=== PATIENT | female | born 1985 | race Caucasian/White ===

== ENCOUNTER 2021-04-12 07:45 | Observation (INO) ==
[2021-04-12] MEDS ORDERED: BETAMETH SOD PHOS/ACETATE IA 6 MG/ML IM STA (08:17)
[2021-04-12] MEDS: LACTATED RINGER'S 1,000 ML IV PRN ×2 (08:35→09:34)
--- NOTE | 2021-04-12 08:35 | History & Physical Report ---
Date of Service April 12, 2021 Assessment & Plan (1) Low-lying placenta: (2) Vaginal bleeding: Plan: Given patient's known low-lying placenta, will want to obtain ultrasound to eval distance of edge of placenta from cervical os. No active bleeding on speculum exam, therefore will plan to monitor for now for both labor and further bleeding. Will give IV fluids, keep NPO. Given early gestational age, will give betamethasone in the event patient needs to be delivered. History of Present Illness Chief Complaint: vaginal bleeding Primary Care Provider: Gabe Earl 36yo @ 34 [birth year]/01, presents with sudden onset of vaginal bleeding this morning, came directly to L&D for eval. Not having any pain. Not feeling ctx. + movement. No gush of fluid, just this bleeding. She brought underwear - did not wear a pad. The underwear is saturated with blood, estimate 20cc bright red blood. is complicated by low-lying placenta, last measurement in office 03/23 was 1.3cm from internal cervical os, with plans to recheck US in office at 36w. 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 Last intercourse a few days ago. Allergies Allergy/AdvReac Type Severity Reaction Status Date / Time No Known Allergies Allergy Mild Verified 04/12/21 08:23 Home Medications Medication Instructions Recorded Confirmed Type [id number] fum-folic ac-om3 1 tab PO DAILY 09/15/20 04/12/21 History [Daily ] famotidine [Pepcid] 40 mg PO BID 02/25/21 04/12/21 History Patient History Medical History No acute medical problems Surgical History H/O wisdom tooth extraction History of foot surgery left bunion surgery x 2 Family History Denies family history of Ovarian cancer Breast cancer Colorectal cancer Uterine cancer Social History (Updated 09/30/20 @ 09:30 by Bee Bhat) Smoking Status: Never smoker Hx Alcohol Use: No Hx Substance Use: No Preferred Language: [place] Communication Ability: Effective Curriculum Development Manager Required: No Beliefs That Will Affect Care: None marital status: marital status details: Luciano (30) [phone] Current Living Situation: Spouse Current Living Situation Comment: lives with spouse, 2 dogs, 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 No s/s chorio or abruption. Skin: no rashes, warm and dry Psychiatric: A+Ox3, euthymic affect Genitourinary: Sterile speculum exam: speculum gently inserted, cervix visualized - visually closed. There was a small clot in the vault, after clearing blood away gently with a large swab, there was no active bleeding from cervix or anywhere else. Digital exam of cervix is difficult due to patient discomfort with exam, but cervix feels closed/thick/high Results & Data ([facility]) Vital Signs (Past 12 Hours) Vital Signs Temp Pulse Resp BP 04/12/21 07:56 37.0 C 20 04/12/21 07:51 77 132/85 Monitoring External Monitor FHT Cat 1 [place] Q 2 min, patient not feeling these Coding Level of Care Code None Diagnoses Low-lying placenta O44.40 Vaginal bleeding N93.9
[2021-04-12 08:39] LABS: Hematocrit (blood only) 35.4 % (37-47); Hemoglobin 12.1 g/dL (12.0-16.0); Mean Corpuscular Hemoglobin 30.3 pg (25-34); Mean Corpuscular Hgb Conc 34.2 g/dL (32-36); Mean Corpuscular Volume 88.7 fL (80-100); Mean Platelet Volume 8.8 fL (7.4-10.4); Platelet Count 293 K/uL (130-400); RDW Coefficient of Variation 13.1 % (11.5-14.5); RDW Standard Deviation 42.8 fL (36.4-46.3); Red Blood Count 3.99 M/uL (4.2-5.4); White Blood Count 8.91 K/uL (4.8-10.8)
--- NOTE | 2021-04-12 10:10 | Ultrasound Report ---
US OB follow up CLINICAL HISTORY: placenta distance from internal cervical os COMPARISON STUDY: OB ultrasound March 23, 2021. TECHNIQUE: Transabdominal sonography of the pelvis was performed. FINDINGS: Single viable intrauterine gestation is noted. The presentation is vertex. heart is n ormal 137 bpm. Placenta is located posteriorly. The placenta is partially obscured on this examinatio n. There is no definite evidence for placenta previa. The appearance of the cervix has changed since ultrasound of March 23, 2021. The cervix canal appears open, measuring 8 mm at the level of the i nternal os. Hypoechoic material within the cervix is noted. Please note that a dedicated anatom ical survey was not performed. Amniotic fluid index is diminished at 6.5. IMPRESSION: 1. Single viable intrauterine gestation. Vertex presentation. Normal heart rate. 2. Cervix now appears open, as described above. Diminished amniotic fluid index of 6.5 cm. Findings d iscussed with Dr. Mendez at time of dictation. 3. Placental tip not well visualized on this exam but no definite evidence for placenta previa. ACT 112: Negative or not required by law. Electronically signed by: Ross Temple M.D. 04/12/2021 10:08 AM
--- NOTE | 2021-04-12 16:23 | Obstetrical Progress Note ---
Date of Service April 12, 2021 Assessment & Plan Admission and Anticipated Discharge Date Admission Date: April 12, 2021 Subjective Feeling good. No contractions - not feeling any, and none on tocometer. FHT Cat 1. No bleeding since this morning. Patient is feeling ok to go home. Recommend return to L&D tomorrow AM for 2nd dose of betamethasone. Reviewed s/s labor, she is to return if any labor signs or if any vaginal bleeding. Followup in office as scheduled. She is agreeable with plan. Results & Data ([facility]) Vital Signs (Past 12 Hours) Vital Signs Temp Pulse Resp BP 04/12/21 15:33 68 118/62 04/12/21 12:04 36.8 C 72 20 119/55 L 04/12/21 09:37 68 110/64 04/12/21 07:56 37.0 C 20 04/12/21 07:51 77 132/85 PG Care Time/CCT Total # of Minutes Spent Total Time Spent with Patient: Total time spent is greater than 50% in coordination of care (as documented) at patient's floor/unit and/or counseling patient: Coding Level of Care Code 56019 Office/Outpt Visit, Est
[2021-04-13] MEDS ORDERED: BETAMETH SOD PHOS/ACETATE IA 6 MG/ML IM ONE (08:20)
--- NOTE | 2021-04-16 23:17 | Discharge Summary ---
Date of Service April 16, 2021 Admission HPI Per Admitting Provider 36yo @ 34 6/7, presents with sudden onset of vaginal bleeding this morning, came directly to L&D for eval. Not having any pain. Not feeling ctx. + movement. No gush of fluid, just this bleeding. She brought underwear - did not wear a pad. The underwear is saturated with blood, estimate 20cc bright red blood. is complicated by low-lying placenta, last measurement in office 03/23 was 1.3cm from internal cervical os, with plans to recheck US in office at 36w. 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 Last intercourse a few days ago. Hospital Course (1) Low-lying placenta: 36yo @ 34 6/7, presented with bright red vaginal bleeding, filled underwear. Upon arrival, contractions every few minutes. Speculum exam showed a clot in the vagina, once this was removed, no further bleeding. Cervix closed. Ultrasound performed, showing internal os .8cm dilated, unable to really see edge of placenta. She was given IV fluids, this seemed to slow ctx and her bleeding resolved. After prolonged monitoring, she was discharged home. First dose of betamethasone given, return to L&D in 24h to receive 2nd dose. (2) Vaginal bleeding: Coding Level of Care Code None Diagnoses Low-lying placenta O44.40 Vaginal bleeding N93.9
== END 2021-04-12 16:30 | disposition home or self-care (01) ==
LOC: 4S1 07:45 → OPB 07:45

== ENCOUNTER 2021-04-17 04:51 | Inpatient (IN) ==
[2021-04-17] MEDS ORDERED: PENICILLIN G POTASSIUM 6 MU in DEXTROSE 5% 250 ML IV STA (05:53)
[2021-04-17] MEDS ORDERED: OXYTOCIN 30 UNITS/500 ML BAG IV PRN ×2 (05:53→20:41)
--- NOTE | 2021-04-17 05:59 | History & Physical Report ---
Date of Service April 17, 2021 Assessment & Plan (1) with 35 completed weeks gestation: Plan: Plan for admission, labs, EFM/toco, IV. GBS is unknown, will give PCN. Since labor, patient is s/p betamethasone x 2 doses, 04/12, 04/13. She will be desiring an epidural. I discussed with patient that we do not have a good measurement of placental edge and its distance from cervical os. Would recommend this to be at least 2cm away from os for successful vaginal delivery. Presumably, it is now further than the 1.3cm seen 3 weeks ago in the office. I do not think there will be much benefit in in-hospital ultrasound at this point, as it will likely be difficult to see again. Offered attempt at vaginal delivery vs . She would like to try for vaginal delivery, and understands that if she develops any vaginal bleeding or if FHT appear distressed, she may need to be taken for an urgent c- section, and she is agreeable to this. At this time, given she is dilated 2-3cm with no vaginal bleeding, this seems promising, but she is aware this could change. 2u PRBC type/cross and hold in case this is needed. (2) Low-lying placenta: History of Present Illness Chief Complaint: labor Primary Care Provider: Gabe Earl 36yo @ [birth year] 10[birth year]01, presents to L&D with contractions every few minutes, increasing in severity. Leaking of fluid approx 3:30am. +FM, currently no vaginal bleeding. Patient has been seen twice at L&D over the past week for a single episode of vaginal bleeding, which resolved upon presentation/exam. Her history is notable for a low-lying placenta, with a 32w measurement of 1.3cm from internal os. Attempt was made for hospital US this past weekend, but unable to really evaluate placental edge. No bleeding of any kind today. She did have some leaking of clear fluid at 3:30a today, which she thought was just urine, but this has continued on arrival to L&D. Allergies Allergy/AdvReac Type Severity Reaction Status Date / Time No Known Allergies Allergy Mild Verified 04/17/21 05:08 Home Medications Medication Instructions Recorded Confirmed Type famotidine 40 mg tablet (Pepcid) mg 04/17/21 History vits no.124-ferrous fum 1 tab PO DAILY 04/17/21 04/17/21 History 27 mg iron-folic acid 800 mcg tablet ( Vitamin) Patient History Medical History No acute medical problems Surgical History H/O wisdom tooth extraction History of foot surgery left bunion surgery x 2 Family History Denies family history of Ovarian cancer Breast cancer Colorectal cancer Uterine cancer Social History (Updated 09/30/20 @ 09:30 by Bee Bhat) Smoking Status: Never smoker Hx Alcohol Use: No Hx Substance Use: No Preferred Language: [place]i Communication Ability: Effective Metal Spinner Required: No Beliefs That Will Affect Care: None marital status: marital status details: Luciano (30) [phone] Current Living Situation: Parent Current Living Situation Comment: lives with spouse, 2 dogs, 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 occupational status: 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 No s/s chorio or abruption. Skin: no rashes, warm and dry Psychiatric: A+Ox3, euthymic affect Genitourinary: Cervix 2-3/100/-1 Grossly ruptured clear fluid, Nitrizine + No vaginal bleeding Results & Data ([facility]) Vital Signs (Past 12 Hours) Vital Signs Temp Pulse Resp BP 04/17/21 05:14 72 128/76 04/17/21 05:11 36.9 C 18 Monitoring External Monitor FHT Cat 1 Tocodynamometer Q 2 min Coding Level of Care Code None Diagnoses with 35 completed weeks gestation Z3A.35 Low-lying placenta O44.40
[2021-04-17] MEDS: LACTATED RINGER'S 1,000 ML IV PRN ×4 (06:01→18:31)
[2021-04-17] MEDS ORDERED: SODIUM CHLORIDE 0.9% 250 ML IV PRN (06:01)
[2021-04-17] MEDS ORDERED: BUPIVACAINE 0.25% 30 ML VIAL ONE (06:04)
[2021-04-17] MEDS ORDERED: ePHEDrine sulfate 50 MG/ML AMP ONE (06:04)
[2021-04-17] MEDS ORDERED: SODIUM CHLORIDE 0.9% INJ 10 ML VIAL ONE (06:04)
[2021-04-17] MEDS ORDERED: fentaNYL citrate 100 MCG/2 ML VIAL ONE (06:05)
[2021-04-17] MEDS ORDERED: fentaNYL 2MCG/ML ROPIVACAINE 1.25MG/ML 100 ML BAG EPI ONE (06:06)
[2021-04-17] MEDS ORDERED: NALOXONE HCL 1 MG in SODIUM CHLORIDE 0.9% 1000ML 1,000 ML IV PRN (06:51)
[2021-04-17] MEDS ORDERED: diphenhydrAMINE 50 MG/ML VIAL IV PRN (06:51)
[2021-04-17] MEDS ORDERED: NALOXONE HCL 0.4 MG/1 ML VIAL/CARP IV PRN (06:51)
[2021-04-17] MEDS ORDERED: NALBUPHINE HCL INJ 10 MG/ML AMP IV PRN (06:51)
[2021-04-17] MEDS ORDERED: ePHEDrine sulfate 50 MG/ML AMP IV PRN (06:51)
[2021-04-17] MEDS ORDERED: ONDANSETRON INJ 2 MG/ML 2 ML VIAL IV PRN (06:51)
--- NOTE | 2021-04-17 06:54 | Anesthesiology Consultation ---
Date of Service April 17, 2021 Assessment & Plan (1) Encounter for pre-operative examination: Chart Review Chart Review: Patient NOT seen in Pre Admission Testing and Acceptable Risk for Labor Epidural Consults Requested none History Height/Weight Height: 5 ft 3 in Weight: 67.585 kg Allergies Allergy/AdvReac Type Severity Reaction Status Date / Time No Known Allergies Allergy Mild Verified 04/17/21 05:08 Medications Home Medications Medication Instructions Recorded Confirmed Last Taken famotidine 40 mg tablet (Pepcid) mg 04/17/21 04/16/21 vits no.124-ferrous fum 1 tab PO DAILY 04/17/21 04/17/21 04/16/21 27 mg iron-folic acid 800 mcg tablet ( Vitamin) Active Medications Generic Name Dose Route Start Last Admin Trade Name Freq PRN Reason Stop Dose Admin Lactated Ringer's 1,000 mls @ 125 mls/hr 04/17/21 05:53 04/17/21 06:01 Lr IV 04/19/21 05:52 999 mls/hr .Q8H PRN Administration L&D Protocol Protocol Past Medical History Medical History (Updated 04/17/21 @ 06:54 by Alejandro Osorio MD) Encounter for pre-operative examination No acute medical problems Exercise / Class Metabolic Activity II 4-5 Yardwork/Stairs/Walk up hill Past Family History Family History Denies family history of Ovarian cancer Breast cancer Colorectal cancer Uterine cancer Past Surgical History Surgical History H/O wisdom tooth extraction History of foot surgery left bunion surgery x 2 Past Anesthesia History No Hx of Anesthesia Complications and No Family Hx of Anesthesia Complications History of PONV No Hx of PONV and No Hx of Motion Sickness Social History Smoking Status: Never smoker Do You Dip or Chew Tobacco: No Hx Alcohol Use: No Hx Substance Use: No substance use type: does not use Physical Exam Vital Signs Last Vital Signs Temp 36.4 C L 04/17/21 07:05 Pulse 77 04/17/21 07:13 Resp 20 04/17/21 07:05 BP 120/66 04/17/21 07:13 Pulse Ox 97 10/22/21 07:10 Testing Laboratory Results 04/17/21 06:38
[2021-04-17 07:01] LABS: Hematocrit (blood only) 34.9 % (37-47); Hemoglobin 11.7 g/dL (12.0-16.0); Mean Corpuscular Hemoglobin 29.6 pg (25-34); Mean Corpuscular Hgb Conc 33.5 g/dL (32-36); Mean Corpuscular Volume 88.4 fL (80-100); Mean Platelet Volume 8.9 fL (7.4-10.4); Platelet Count 316 K/uL (130-400); RDW Coefficient of Variation 13.3 % (11.5-14.5); RDW Standard Deviation 42.9 fL (36.4-46.3); Red Blood Count 3.95 M/uL (4.2-5.4); White Blood Count 16.15 K/uL (4.8-10.8)
[2021-04-17] MEDS: fentaNYL 2MCG/ML ROPIVACAINE 1.25MG/ML 100 ML BAG EPI PRN ×3 (07:17→18:35)
[2021-04-17] MEDS: PENICILLIN G POTASSIUM 3 MU in DEXTROSE 5% 100 ML IV PRN ×3 (10:16→18:17)
[2021-04-17] MEDS ORDERED: Nursing to Pharmacy Communication SCH (10:30)
--- NOTE | 2021-04-17 11:21 | Labor Progress Brief Note ---
Date of Service April 17, 2021 Subjective Reason For Note: Routine Evaluation Assessment & Plan (1) Low-lying placenta: Plan: Progressing well, Cat 1 tracing, Vitals normal (2) with 35 completed weeks gestation: (3) Supervision of normal intrauterine in primigravida: (4) SROM (spontaneous rupture of membranes): (5) Normal labor: Admission and Anticipated Discharge Date Admission Date: April 17, 2021 Physical Exam Genitourinary: OB Exam Abdomen: + vertex Manual OB Exam: + cervical dilation 6 cm, + cervical effacement 90% and + station -1 OB Exam Monitor Tracing: + external FHT monitor used, + external uterine monitor used, + category I and + normal FHT variability Results & Data ([facility]) Vital Signs (Past 12 Hours) Vital Signs Temp Pulse Resp BP Pulse Ox 04/17/21 11:15 85 96 04/17/21 11:10 80 95 04/17/21 11:09 36.9 C 18 04/17/21 11:08 74 111/66 94 04/17/21 11:05 89 97 04/17/21 11:02 78 93 04/17/21 11:00 83 96 04/17/21 10:55 76 94 04/17/21 10:52 72 111/63 04/17/21 10:50 79 96 04/17/21 10:49 78 94 04/17/21 10:45 76 95 04/17/21 10:44 76 94 04/17/21 10:40 76 97 04/17/21 10:38 73 103/51 L 04/17/21 10:35 78 95 04/17/21 10:31 77 94 04/17/21 10:30 78 95 04/17/21 10:25 68 94 04/17/21 10:24 72 92 04/17/21 10:23 68 107/58 L 04/17/21 10:20 78 96 04/17/21 10:16 73 94 04/17/21 10:15 75 96 04/17/21 10:10 72 95 04/17/21 10:08 70 94 04/17/21 10:06 71 99/57 L 04/17/21 10:05 73 93 04/17/21 10:02 71 94 04/17/21 10:00 73 98 04/17/21 09:55 68 95 04/17/21 09:54 68 94 22/21 09:51 73 103/57 L 04/17/ 09:50 68 94 04/17/ 09:46 67 94 04/17/21 09:45 70 95 04/17/21 09:40 68 93 04/17/21 09:36 68 110/55 L 04/17/ 09:35 70 94 04/17/ 09:30 71 94 04/17/21 09:25 70 93 04/17/21 09:22 65 109/55 L 04/17/ 09:21 71 94 04/17/ 09:20 72 94 04/17/ 09:15 78 94 04/17/21 09:13 68 94 04/17/21 09:10 69 94 04/17/21 09:07 67 109/55 L 04/17/ 09:06 70 94 04/17/21 09:05 75 95 04/17/21 09:01 74 94 04/17/21 09:00 76 94 04/17/21 08:55 73 95 04/17/21 08:52 68 115/55 L 04/17/ 08:51 74 94 04/17/ 08:50 81 95 04/17/ 08:45 71 95 04/17/ 08:44 73 94 04/17/ 08:40 76 95 04/17/ 08:36 82 105/58 L 94 04/17/21 08:35 78 95 04/17/ 08:30 73 18 95 04/17/ 08:28 72 94 04/17/21 08:25 74 95 04/17/21 08:23 77 114/66 92 04/17/21 08:20 74 95 04/17/21 08:15 76 96 04/17/21 08:13 94 H 94 04/17/21 08:10 74 95 04/17/21 08:06 65 101/55 L 04/17/ 08:05 72 95 04/17/ 08:00 67 96 04/17/21 07:55 70 95 04/17/21 07:50 72 96 22/21 07:49 73 103/59 L 94 04/17/ 07:48 82 103/59 L 22/21 07:46 71 126/61 10/22/21 07:45 78 95 04/17/21 07:43 77 115/68 04/17/21 07:41 79 112/58 L 04/17/21 07:40 78 96 04/17/21 07:39 74 115/61 04/17/21 07:37 79 119/64 04/17/21 07:35 77 126/63 97 04/17/21 07:33 76 122/59 L 04/17/21 07:31 74 120/61 04/17/21 07:30 82 96 04/17/21 07:29 76 115/67 04/17/21 07:27 82 115/69 04/17/21 07:25 71 117/66 97 04/17/21 07:23 71 112/58 L 04/17/21 07:21 74 113/55 L 04/17/21 07:20 72 96 04/17/21 07:19 82 117/58 L 04/17/21 07:17 79 118/56 L 04/17/21 07:15 79 113/60 96 04/17/21 07:13 77 120/66 04/17/21 07:11 76 125/69 04/17/21 07:10 77 123/69 97 04/17/21 07:05 36.4 C L 82 20 111/82 98 04/17/21 07:01 96 H 94 04/17/21 07:00 97 H 99 04/17/21 06:55 81 97 04/17/21 06:50 71 97 04/17/21 06:48 77 93 04/17/21 06:45 76 97 04/17/21 06:40 81 96 04/17/21 06:35 99 H 98 04/17/21 06:30 76 98 04/17/21 06:25 73 95 04/17/21 06:22 76 93 04/17/21 06:20 81 97 04/17/21 06:15 69 96 04/17/21 06:10 76 95 04/17/21 05:14 72 128/76 04/17/21 05:11 36.9 C 18 Coding Level of Care Code None Diagnoses Low-lying placenta O44.40 with 35 completed weeks gestation Z3A.35 Supervision of normal intrauterine in primigravida Z34.00 SROM (spontaneous rupture of membranes) Normal labor O80; Z37.9
[2021-04-17] MEDS ORDERED: HYDROCORTISONE ACETATE 25 MG SUPP PR PRN (20:41)
[2021-04-17] MEDS ORDERED: ACETAMINOPHEN 325 MG TAB PO PRN (20:41)
[2021-04-17] MEDS ORDERED: BENZOCAINE 20% AER SPR 82.5 GM CAN EXT PRN (20:41)
[2021-04-17] MEDS ORDERED: DIPHTHERIA/TETANUS/PERTUSSIS 0.5 ML SYR/VIAL IM ONE (20:41)
[2021-04-17] MEDS ORDERED: SUPERCREAM 0.870% 15 GM JAR EXT PRN (20:41)
--- NOTE | 2021-04-17 21:17 | Anesthesia Procedure Note ---
Date of Service April 17, 2021 Anesthesia Post Epidural Note Vital Signs Vital Signs: Temp Pulse Resp BP Pulse Ox 37.0 C 100 H 18 114/56 L 99 04/17/21 18:57 04/17/21 21:04 04/17/21 21:05 04/17/21 21:04 04/17/21 20:33 Pain Intensity Abdomen: Pain Intensity: 8 Notes Mental Status: alert / awake / arousable and participated in evaluation Patient Amnestic to Procedure: No Nausea / Vomiting: adequately controlled Pain: adequately controlled Airway Patency, RR, SpO2: stable & adequate BP & HR: stable & adequate Hydration State: stable & adequate Neuraxial Anesthesia: was administered and sensory block is resolving Anesthetic Complications: no major complications apparent and Pt Satisfied with anesthetic care Epidural: Removed without complications and With tip intact
[2021-04-17] MEDS: DOCUSATE SODIUM 100 MG CAP PO SCH (22:34)
--- NOTE | 2021-04-17 22:37 | Delivery Summary ---
DATE OF SERVICE: 04/17/2021 PROCEDURE: Normal spontaneous vaginal delivery with second-degree perineal laceration repair and lef t sulcal laceration repair. SURGEON: Hugh Daniel MD. PREOPERATIVE DIAGNOSES: 1. Single intrauterine at 35 weeks 4 days gestational age. 2. Spontaneous rupture of membranes with spontaneous labor. 3. at 35 weeks gestational age. 4. Group B streptococcus unknown. 5. Suspected low-lying placenta at greater than 1 cm above cervical os. POSTOPERATIVE DIAGNOSES: 1. Single intrauterine at 35 weeks 4 days gestational age. 2. Spontaneous rupture of membranes with spontaneous labor. 3. at 35 weeks gestational age. 4. Group B streptococcus unknown. 5. Suspected low-lying placenta at greater than 1 cm above cervical os. 6. Status post procedure. ESTIMATED BLOOD LOSS: 300 mL. DRAINS: Straight cath at the completion of the case. URINE OUTPUT: Approximately 200 mL via straight cath. COMPLICATIONS: None. FINDINGS: Viable with weight and Apgars pending. DESCRIPTION OF PROCEDURE: The patient progressed to 10 cm dilated, 100% effaced, positive 1 station, pushed over intact perineum with epidural anesthesia and delivered a viable with weight and Apgars as noted above. Head of the delivered in ROP position, restituted to right transverse . No nuchal cord was noted. Body and shoulders quickly followed. was noted to be vigorous soon after delivery and a 1 minute delayed cord clamping was initiated. Cord was then double clamped and cut. remained on maternal abdomen and continued to be vigorous. Cord blood was obtaine d. Attention was then turned to delivery of placenta, which was delivered intact, 3-vessel cord, gen tle cord traction. On inspection of the perineum, vagina, cervix, there was noted to be a second-deg ree perineal laceration and a left sulcal laceration, which was repaired with 3-0 Vicryl continuous r unning stitch with the perineal laceration performed with a traditional crown suture stitch. Needle, sponge, and instrument counts were correct at the completion of the case. Both mother and w ere stable in the immediate post-delivery period. Job ID: [id number]
[2021-04-17] MEDS: IBUPROFEN 600 MG TAB PO PRN (23:20)
[2021-04-18] MEDS ORDERED: bisacodyL 10 MG SUPP PR PRN
[2021-04-18 06:33] LABS: Hematocrit (blood only) 29.1 % (37-47); Hemoglobin 9.8 g/dL (12.0-16.0)
--- NOTE | 2021-04-18 08:10 | Obstetrical Progress Note ---
Date of Service <Stevo Draper MD - Last Filed: 04/18/21 08:10> April 18, 2021 Assessment & Plan <Stevo Draper MD - Last Filed: 04/18/21 08:10> (1) Encounter for care and examination after delivery: PPD #1: stable, routine management * patient voiding and ambulating without difficulty * pain well controlled on analgesia * tolerating regular diet * bottle feeding * hemoglobin this morning 9.8, down from 11.7 yesterday; on 325 mg iron gumaro; no need for further labs unless indicated * observe on L&D floor today * reassess d/c readiness tomorrow a.m. <Hugh Daniel MD - Last Filed: 04/20/21 07:37> (1) Encounter for care and examination after delivery: Subjective <Stevo Draper MD - Last Filed: 04/18/21 08:10> Jessa is a 36-year-old female who is now PPD #1 following spontaneous vaginal delivery at 35.4 weeks. Resting comfortably in bed this morning. Denies abdominal cramping & 0/10 pain well managed on analgesics. Voiding +. Tolerating meals well and able to ambulate without difficulty to and from the bathroom. Passing gas but no bowel movements. Some improvement with her lochia this morning. Bottle feeding. Review of Systems Denies fever, chills, sweats Denies shortness of breath, difficulty breathing, chest pain, palpitations, chest pressure. Denies breast pain. Denies dysuria. Denies headache or changes in vision Physical Exam <Stevo Draper MD - Last Filed: 04/18/21 08:10> General: Alert, oriented. No acute distress. Cardiac: Regular rate and rhythm, no murmurs/rubs/gallops. Respiratory: Clear to auscultation bilaterally a/p, no wheezes/rales/rhonchi. No increased work of breathing. Symmetrical chest rise. No respiratory distress. Abdomen: Soft, nontender, nondistended. Bowel sounds present. Uterus: Uterine fundus firm, palpable 1 cm below umbilicus. Lower Extremities: No lower extremity edema or swelling. No deep calf pain. Yonas's negative bilaterally.. Results & Data ([facility]) <Stevo Draper MD - Last Filed: 04/18/21 08:10> Vital Signs (Past 12 Hours) Vital Signs Temp Pulse Pulse Resp BP BP Pulse Ox 04/18/21 03:10 36.9 C 72 16 103/66 98 04/17/21 23:10 36.8 C 88 16 112/74 97 04/17/21 22:34 36.9 C 96 H 18 108/61 04/17/21 22:19 98 H 103/56 L 04/17/21 22:04 37.0 C 92 H 18 107/56 L 04/17/21 21:49 97 H 109/68 04/17/21 21:34 107 H 16 99/68 L 04/17/21 21:20 16 04/17/21 21:19 100 H 109/73 04/17/21 21:05 18 04/17/21 21:04 100 H 114/56 L 04/17/21 20:55 88 126/56 L 04/17/21 20:50 18 04/17/21 20:34 96 H 18 116/71 04/17/21 20:33 100 H 99 04/17/21 20:28 94 H 99 04/17/21 20:23 100 H 99 04/17/21 20:18 95 H 98 04/17/21 20:13 99 H 98 04/17/21 20:08 100 H 96 04/17/21 20:03 110 H 97 04/17/21 19:58 103 H 98 04/17/21 19:54 138 H 87 L 04/17/21 19:53 131 H 98 04/17/21 19:48 119 H 98 <Hugh Daniel MD - Last Filed: 04/20/21 07:37> Co-Signing Physician Notes Patient seen and evaluated and agree with the above findings and plan. Routine care Resident Activity Tracking <Stevo Draper MD - Last Filed: 04/18/21 08:10> Resident Involvement: Resident Care Provided Care Provided: OB Delivery
[2021-04-18] MEDS: FERROUS SULFATE 325 MG TAB PO SCH (08:49)
[2021-04-18] MEDS: PRENATAL VITAMIN 1 TAB PO SCH (08:49)
[2021-04-18] MEDS: DOCUSATE SODIUM 100 MG CAP PO SCH ×2 (08:49→19:42)
[2021-04-18] MEDS: IBUPROFEN 600 MG TAB PO PRN (15:44)
[2021-04-18] MEDS ORDERED: bisacodyL 5 MG TABEC PO SCH (20:00)
[2021-04-19] MEDS: IBUPROFEN 600 MG TAB PO PRN (07:43)
[2021-04-19] MEDS: DOCUSATE SODIUM 100 MG CAP PO SCH (07:44)
[2021-04-19] MEDS: PRENATAL VITAMIN 1 TAB PO SCH (07:44)
[2021-04-19] MEDS: FERROUS SULFATE 325 MG TAB PO SCH (07:44)
--- NOTE | 2021-04-19 08:08 | Obstetrical Progress Note ---
Date of Service April 19, 2021 Assessment & Plan (1) Encounter for care and examination after delivery: day #2 patient is doing well ambulating well tolerating oral diet she is not breast-feeding she is not having excessive bleeding and she has no extremity pain Results & Data ([facility]) Vital Signs (Past 12 Hours) Vital Signs Temp Pulse Resp BP Pulse Ox 04/18/21 23:20 98.4 F 69 16 104/66 98
== END 2021-04-19 11:57 | disposition home or self-care (01) | DRG 806 ==
LOC: OPB 04:51 → 4S1 04:56 → 4S2 23:13

== ENCOUNTER 2023-07-19 14:19 | Inpatient (IN) ==
[2023-07-19] MEDS ORDERED: LIDOCAINE 1% LOCAL 20 ML VIAL INFIL PRN (14:41)
[2023-07-19] MEDS ORDERED: OXYTOCIN 30 UNITS/NSS 30 UNITS/500 ML BAG IV PRN (14:41)
[2023-07-19] MEDS ORDERED: ePHEDrine sulfate 50 MG/ML AMP ONE (14:45)
[2023-07-19] MEDS ORDERED: SODIUM CHLORIDE 0.9% PF INJ 10 ML VIAL ONE (14:45)
[2023-07-19] MEDS: LACTATED RINGER'S 1,000 ML IV PRN ×2 (14:45→15:46)
[2023-07-19] MEDS ORDERED: BUPIVACAINE 0.25% PF 30 ML VIAL ONE (14:46)
[2023-07-19] MEDS ORDERED: fentANYL 2 MCG/ML BUPIVacaine 0.125%-NSS 100ML BAG ONE (14:46)
[2023-07-19] MEDS ORDERED: LIDOCAINE 2%/EPINEPHRINE 1:200,000 20 ML PF ONE ×2 (14:46→17:41)
--- NOTE | 2023-07-19 14:46 | Labor Progress Brief Note ---
Date of Service July 19, 2023 Subjective Patient with ROM at home, clear fluid, at 1pm today. Onset of painful contractions immediately after, currently Q3m. Seen in office to confirm ROM and sent to L&D. Now wants epidural. No VB beyond some spotting and does have good FM. Assessment & Plan (1) Normal labor: Plan Admit, epidural. Exp mgmt for now. If required, can augment later. Physical Exam Constitutional: WD/WN, vitals as above + in distress Eyes: PERRL, conjunctivae normal, anicteric sclerae ENMT: external ear and nose normal, oropharynx normal Neck: supple Respiratory: normal respiratory effort and able to speak in complete sentences; no respiratory distress Cardiovascular: Rate/Rhythm: regular rate and regular rhythm Extremities: + pedal edema Gastrointestinal (Abdomen): Gravid / AGA, nontender Musculoskeletal: no cyanosis or clubbing, extremities motor strength 5/5 Skin: no rashes, warm and dry Psychiatric: A+Ox3, euthymic affect Genitourinary: Speculum/Bimanual Exam: no vaginal lesions, no vaginal bleeding and uterus nontender OB Exam Abdomen: + vertex, + estimated weight (7) and + regular contractions (Q3) Manual OB Exam: + cervical dilation 5 cm, + cervical effacement 100%, + station -2 and + amniotic fluid clear OB Exam Monitor Tracing: + external FHT monitor used, + external uterine monitor used and + category I Lymphatic: no cervical or axillary lymphadenopathy Coding Level of Care Code None Diagnoses Normal labor O80; Z37.9
[2023-07-19] MEDS ORDERED: fentaNYL citrate PF 100 MCG/2 ML VIAL ONE ×2 (14:47→17:41)
--- NOTE | 2023-07-19 14:50 | History & Physical Report ---
Date of Service July 19, 2023 Assessment & Plan (1) Elderly multigravida, currently : (2) Normal labor: Plan Pt is a 38 yo at 39 2/7 WGA presenting to labor and delivery for active labor. Blood type; B+, GBS negative, rubella immune Continue current management, may augment labor later if necessary Proceed with labor and plan for vaginal delivery. History of Present Illness Chief Complaint: Labor Primary Care Provider: Gabe Lida Posadasy Pt is a 38 y/o female currently at 39 2/7 WGA with an ALISON of 07/24/23 as determined by LMP who is here for spontaneous labor. Her was complicated by AMA only and hx of delivery 35 WGA. Pt states she is feeling well today. No recent fevers, chills or illnesses. Expecting to deliver a boy today and her other child at home is a boy as well. No questions or complaints at this time. + now more intense and frequent contractions; + movement; + fluid loss; notes some spotting of blood. External FHT and external uterine monitors used; Category I tracing; moderate FHT variability. Had regular appointments with OB. OB Labs: Blood Type B Positive 12/14/22 Antibody Screen NEGATIVE 12/14/22 Hemoglobin 11.2 g/dl (12.0-16.0) L 04/28/23 Hematocrit 33.4 % (37.0-47.0) L 04/28/23 Mean Corpuscular Volume 85.0 fL (80.0-100.0) 12/14/22 Platelet Count 325 K/uL (130-400) 12/14/22 Rubella IgG Antibody Immune (Immune) 12/14/22 Rapid Plasma Reagin Nonreactive (Nonreactive) 12/14/22 Hepatitis B Surface Antigen Neg (Neg) 10/08/20 Hepatitis B Surface Antigen. NON-REACTIVE (NON-REACTIVE) 12/14/22 Hepatitis C Antibody (EIA) NON-REACTIVE (NON-REACTIVE) 12/14/22 HIV (1&2) Ab and P24 Ag, 4th Gener Neg (Neg) 10/08/20 HIV (1&2) Ag and Ab Confirmation NON-REACTIVE (NON-REACTIVE) 12/14/22 Glucose 1 Hour 50 gm Load 131 mg/dl (70-130) H 02/07/23 Maternal Serum Alpha Fetoprotein 43.7 ng/mL 02/07/23 OB Optional Labs: Chlamydia trachomatis RNA Not Detected (NotDetected) 12/14/22 Neisseria gonorrhoeae RNA Not Detected (NotDetected) 12/14/22 Alpha Fetoprotein Triple Screen SEE NOTE 02/07/23 Allergies Allergy/AdvReac Type Severity Reaction Status Date / Time No Known Allergies Allergy Mild Verified 07/19/23 10:26 Home Medications Medication Instructions Recorded Confirmed Type vits no.124-ferrous fum tab 07/19/23 History 27 mg iron-folic acid 800 mcg tablet ( Vitamin) Patient History Medical History Normal labor delivery Upper abdominal pain GERD (gastroesophageal reflux disease) Borderline high cholesterol History of COVID-19 December 28, 2021 > resolved per pt Encounter for care and examination after delivery SROM (spontaneous rupture of membranes) Supervision of normal intrauterine in primigravida Pelvic pressure in Surgical History History of adenoidectomy H/O wisdom tooth extraction History of foot surgery left bunion surgery x 2 Family History Denies family history of Ovarian cancer Breast cancer Colorectal cancer Uterine cancer Social History (Updated 12/09/22 @ 09:52 by Silvia Caballero, RN) Smoking Status: Never smoker Second Hand Exposure: No; Do You Dip or Chew Tobacco: No; Hx Alcohol Use: Yes Alcohol type: beer and wine Hx Substance Use: No Preferred Language: Faroese Communication Ability: Effective Investigation Clerk Required: No Beliefs That Will Affect Care: None marital status: marital status details: Luciano (30) [phone] Current Living Situation: Family Current Living Situation Comment: lives with spouse, son, 1 dog current occupational status: employed 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 Date GA wks Lbr Lgth wt Sex Type del Anes Place Del Prov ? Comment 04/17/21 37 6lbs 6oz M Epid ural [facility] Dr Daniel Yes Review of Systems no fever, no chills and no sweats no dyspnea no difficulty breathing no chest pain and no palpitations no dysuria no headache(s) no changes in vision Physical Exam Physical Exam: General: Alert, oriented. No acute distress. Cardiac: Regular rate and rhythm, no murmurs, gallops, or rubs. Respiratory: Clear to auscultation bilaterally a/p, no wheezes, rales, or rhonchi. No increased work of breathing. No respiratory distress. Abdomen: Gravid. Reactive FHTs. Position: vertex Pelvic: Dilation 5 cm, Effacement 100%, Station -[address] Ansari. Lower extremities: No lower extremity edema or swelling. No deep calf pain. Yonas's negative bilaterally. Resident Activity Tracking Resident Involvement: Resident Care Provided Care Provided: Adult Hospital Medicine
[2023-07-19] MEDS ORDERED: LIDOCAINE 2%/EPINEPHRINE 1:200,000 20 ML PF EPI STA (15:15)
[2023-07-19] MEDS ORDERED: fentANYL 2 MCG/ML BUPIVacaine 0.125%-NSS 100ML BAG EPI PRN (15:15)
[2023-07-19] MEDS ORDERED: diphenhydrAMINE 50 MG/ML VIAL IV PRN (15:15)
[2023-07-19] MEDS ORDERED: BUPIVACAINE 0.25% PF 30 ML VIAL EPI STA (15:15)
[2023-07-19] MEDS ORDERED: ePHEDrine sulfate 50 MG/ML AMP IV PRN (15:15)
[2023-07-19] MEDS ORDERED: LIDOCAINE 2% MPF LOCAL 5 ML VIAL EPI PRN (15:15)
[2023-07-19] MEDS ORDERED: ONDANSETRON INJ 2 MG/ML 2 ML VIAL IV PRN (15:15)
[2023-07-19] MEDS ORDERED: fentaNYL citrate PF 100 MCG/2 ML VIAL EPI PRN (15:15)
[2023-07-19] MEDS ORDERED: NALBUPHINE HCL 5 MG in SYRINGE 0 ML IV PRN (15:15)
[2023-07-19] MEDS ORDERED: NALOXONE HCL 0.4 MG/1 ML VIAL/CARP IV PRN (15:15)
[2023-07-19] MEDS ORDERED: fentaNYL citrate PF 100 MCG/2 ML VIAL EPI STA (15:15)
[2023-07-19] MEDS ORDERED: NALOXONE HCL 1 MG in SODIUM CHLORIDE 0.9% 1,000 ML IV PRN (15:15)
[2023-07-19] MEDS ORDERED: ROPIVACAINE 0.5% PF 5 MG/ML 20 ML VIAL EPI PRN (15:15)
[2023-07-19] MEDS ORDERED: SODIUM CHLORIDE 0.9% PF INJ 10 ML VIAL EPI STA (15:15)
[2023-07-19] MEDS ORDERED: SODIUM CHLORIDE 0.9% PF INJ 10 ML VIAL EPI PRN (15:15)
--- NOTE | 2023-07-19 15:17 | Anesthesiology Consultation ---
Date of Service July 19, 2023 Assessment & Plan ASA ASA2 Proposed Anesthesia Anesthesia Type: CSE Risk / Benefits Reviewed With: PT / POA / Parent / Guardian, Accepts Plan and Informed Consent Obtained History Height/Weight Height: 5 ft 3 in Weight: 78.925 kg Allergies Allergy/AdvReac Type Severity Reaction Status Date / Time No Known Allergies Allergy Mild Verified 07/19/23 10:26 Medications Home Medications Medication Instructions Recorded Confirmed Last Taken vits no.124-ferrous fum tab 07/19/23 07/19/23 27 mg iron-folic acid 800 mcg tablet ( Vitamin) Active Medications Generic Name Dose Route Start Last Admin Trade Name Freq PRN Reason Stop Dose Admin Bupivacaine HCl 30 ml 07/19/23 15:15 07/19/23 16:04 Bupivacaine 0.25% Pf 30 Ml Vial EPI 07/20/23 15:14 30 ml ONCE PRN Administration Epidural Redose Fentanyl Citrate 100 mcg 07/19/23 15:15 07/19/23 15:44 Fentanyl Citrate Pf 100 Mcg/2 Ml Vial EPI 07/20/23 15:14 100 mcg ONCE PRN Administration Epidural Redose Fentanyl/Bupivacaine/Sodium Chlor 100 ml 07/19/23 15:15 07/19/23 15:45 Fentanyl 2 Mcg/Ml Bupivacaine 0.125%-Nss 100ml Bag EPI 07/20/23 15:14 100 ml PRN PRN Administration Pain R/T Labor Protocol Lactated Ringer's 1,000 mls @ 125 mls/hr 07/19/23 14:41 07/19/23 14:45 Lr IV 07/21/23 14:40 999 mls/hr .Q8H PRN Administration L&D Protocol Protocol Past Medical History Medical History Normal labor delivery Upper abdominal pain GERD (gastroesophageal reflux disease) Borderline high cholesterol History of COVID-19 December 28, 2021 > resolved per pt Encounter for care and examination after delivery SROM (spontaneous rupture of membranes) Supervision of normal intrauterine in primigravida Pelvic pressure in Exercise / Class Metabolic Activity II 4-5 Yardwork/Stairs/Walk up hill Past Family History Family History Denies family history of Ovarian cancer Breast cancer Colorectal cancer Uterine cancer Past Surgical History Surgical History History of adenoidectomy H/O wisdom tooth extraction History of foot surgery left bunion surgery x 2 Past Anesthesia History No Hx of Anesthesia Complications and No Family Hx of Anesthesia Complications History of PONV No Hx of PONV and No Hx of Motion Sickness Social History Smoking Status: Never smoker Do You Dip or Chew Tobacco: No Hx Alcohol Use: Yes Alcohol type: beer and wine alcohol intake frequency: a few times a month Hx Substance Use: No substance use type: does not use Review of Systems denies fever/cough/ colds/ chest pain/ SOB/ CELIO denies CELIO Physical Exam Vital Signs Last Vital Signs Temp 36.6 C 07/19/23 14:52 Pulse 81 07/19/23 17:49 Resp 18 07/19/23 17:30 BP 134/60 07/19/23 17:49 Pulse Ox 99 07/19/23 17:47 ENMT Mouth: no TMJ abnormality and no dentition abnormality Thyromental Distance: > or= 3.5 Finger Breadths Mallampati Class: II Neck neck extension not limited Respiratory normal respiratory effort; no respiratory distress Auscultation: lungs clear to auscultation bilaterally Cardiovascular Rate/Rhythm: regular rate and regular rhythm Neurologic moves all extremities Psychiatric Orientation: alert and oriented x 3 Testing Laboratory Results 07/19/23 15:06
[2023-07-19 15:21] LABS: Hematocrit (blood only) 31.9 % (37.0-47.0); Hemoglobin 10.5 g/dl (12.0-16.0); Mean Corpuscular Hemoglobin 27.6 pg (25.0-34.0); Mean Corpuscular Hgb Conc 32.9 g/dL (32.0-36.0); Mean Corpuscular Volume 83.7 fL (80.0-100.0); Mean Platelet Volume 9.3 fL (9.4-12.4); Platelet Count 342 K/uL (130-400); RDW Coefficient of Variation 13.2 % (11.5-14.5); RDW Standard Deviation 40.1 fL (36.4-46.3); Red Blood Count 3.81 M/uL (4.20-5.40); White Blood Count 10.66 K/ul (4.8-10.8)
[2023-07-19] MEDS: BUPIVACAINE 0.25% PF 30 ML VIAL EPI PRN ×2 (15:44→16:04)
[2023-07-19] MEDS ORDERED: ROPIVACAINE 0.5% 5 MG/ML 30 ML VIAL ONE (17:41)
--- NOTE | 2023-07-19 17:56 | Communication Note ---
Date of Service: July 19, 2023 after intial placement of the epidural, pt was without relief. I decided to repeat the epidural but with a cse. sterile prep/drape/glove/mask. 1% lido was infiltrated. 18 gauge touey advanced to ponce at 5cm to air. I placed a spinal needle through the touey and obtained csf. 1ml of 0.25% bupivicaine was injected. needle removed and an easy catheter thread to 11cm. site was secured and attached to pump. pump started
--- NOTE | 2023-07-19 17:57 | Anesthesia Procedure Note ---
Date of Service July 19, 2023 Anesthesia Epidural Re-Dose Vital Signs Temp Pulse Resp BP Pulse Ox 36.6 C 87 18 136/83 97 07/19/23 14:52 07/19/23 17:54 07/19/23 17:30 07/19/23 17:54 07/19/23 17:52 Notes Pain Intensity: 8 Dilatation (cm): 9.5 Effacement (%): 100 Called by nursing to evaluate epidural as the patient is having increased pain. The epidural was re-dosed with the following medications (all medications via epidural route) after negative aspiration of the epidural catheter for CSF/HEME. 2ml 2% lidocaine with epi, 3mL ropivacaine 0.5% and 100 mcg fetanyl via epidural After Epidural Re-Dose Mental Status: alert / awake / arousable Pain: improving with treatment Airway Patency, RR, SpO2: stable & adequate BP & HR: stable & adequate
--- NOTE | 2023-07-19 19:32 | Delivery Summary ---
Vaginal Delivery Summary Date of Service July 19, 2023 Vaginal Delivery Summary DIAGNOSES: 1. Tomlin intrauterine at 39w2d gestation. 2. Spontaneous onset of labor. 3. Group B Streptococcus Neg. PROCEDURE: Spontaneous vaginal delivery and repair of second degree laceration. SURGEON: Meagan Ansari MD. WARPER CREELER: None. ESTIMATED BLOOD LOSS: 400 mL. COMPLICATIONS: None. PLACENTA: Spontaneous and intact with a 3-vessel cord. DISPOSITION: Stable to labor and delivery. DESCRIPTION: The patient pushed well and brought the head to in DOA position. The infant's head was allowed to deliver with contraction force and no further active pushing, with the perineum protected during this time. There was no nuchal cord. The right shoulder was anterior. The left arm, posterior, was a compound presentation with left hand alongside left cheek. An occult cord prolapse accompanied the L arm as it delivered. To speed delivery of the arm and minimize compression of the cord, this arm was swept in physiologic fashion, then the right shoulder delivered under the pubic arch with gentle downward guidance on the head. The body delivered without any difficulty, and the was placed on the maternal abdomen. The cord was do ubly clamped by the MD and then cut by the FOB. Pediatric seo team lead was available at the maternal bedside during cord cutting and took the infant immediately to the warmer for attention. The infant was heard to cry soon after arriving at the warmer. The placenta delivered spontaneously and was noted to be intact and with a 3VC. The cervix, vagina and perineum were examined and were found to have a shallow second degree laceration, which was repaired in running locked manner, with an additional figure of eight stitch at 5 o'clock near the introitus to achieve complete hemostasis. The fundus was firm and lochia minimal immediately after delivery. [facility] Vaginal Delivery Charge Vaginal Delivery Codes: 83563 global code for the antepartum, delivery, and post-
[2023-07-19] MEDS ORDERED: BENZOCAINE 20% SPRY 85 APPLN/85 GM CAN EXT PRN (19:33)
[2023-07-19] MEDS ORDERED: ACETAMINOPHEN 325 MG TAB PO PRN (19:33)
[2023-07-19] MEDS ORDERED: HYDROCORTISONE ACETATE 25 MG SUPP PR PRN (19:33)
[2023-07-19] MEDS ORDERED: oxyCODONE/ACETAMINOPHEN 5mg/325mg TAB PO PRN (19:33)
[2023-07-19] MEDS ORDERED: DIPHTHER/TETAN/PERTUS Vaccine (Tdap, Adol/Adult) 0.5mL IM ONE (19:33)
--- NOTE | 2023-07-19 20:06 | Anesthesia Procedure Note ---
Date of Service July 19, 2023 Anesthesia Post Epidural Note Vital Signs Vital Signs: Temp Pulse Resp BP Pulse Ox 36.7 C 96 H 18 145/65 H 98 07/19/23 18:00 07/19/23 19:54 07/19/23 19:00 07/19/23 19:54 07/19/23 19:22 Pain Intensity Abdomen: Pain Intensity: 8 Notes Mental Status: alert / awake / arousable and participated in evaluation Nausea / Vomiting: adequately controlled Pain: adequately controlled Airway Patency, RR, SpO2: stable & adequate BP & HR: stable & adequate Hydration State: stable & adequate Neuraxial Anesthesia: was administered and sensory block resolved Anesthetic Complications: no major complications apparent and Pt Satisfied with anesthetic care Epidural: Removed without complications and With tip intact
[2023-07-19] MEDS: DOCUSATE SODIUM 100 MG CAP PO SCH (22:49)
[2023-07-20] MEDS: IBUPROFEN 600 MG TAB PO PRN ×3 (04:26→23:30)
[2023-07-20 06:09] LABS: Hematocrit (blood only) 25.1 % (37.0-47.0); Hemoglobin 8.2 g/dl (12.0-16.0); Mean Corpuscular Hemoglobin 27.5 pg (25.0-34.0); Mean Corpuscular Hgb Conc 32.7 g/dL (32.0-36.0); Mean Corpuscular Volume 84.2 fL (80.0-100.0); Mean Platelet Volume 9.1 fL (9.4-12.4); Platelet Count 260 K/uL (130-400); RDW Coefficient of Variation 13.3 % (11.5-14.5); Red Blood Count 2.98 M/uL (4.20-5.40); White Blood Count 12.29 K/ul (4.8-10.8)
--- NOTE | 2023-07-20 06:10 | Obstetrical Progress Note ---
Date of Service <Tanya Gordillo DO - Last Filed: 07/20/23 06:15> July 20, 2023 Assessment & Plan <Tanya Gordillo DO - Last Filed: 07/20/23 06:15> (1) care following vaginal delivery: Feels well today. Eating well, voiding well, ambulating well. Pain well controlled with tylenol/ibuprofen. Routine care; OOB, ambulation, continue regular diet. Anticipate discharge 24-48 hours after , tonight or tomorrow. After discharge will have 6 week follow-up with Dr. Ansari. <Meagan Ansari MD - Last Filed: 07/20/23 07:15> (1) care following vaginal delivery: Subjective <Tanya Gordillo DO - Last Filed: 07/20/23 06:15> Pt is a 38 y/o female who is PPD#1 following at 39 2/7 weeks. Pt states she is feeling well this morning. She states her pain has been very mild and is relived with tylenol/motrin. She states that she has been up moving around since the delivery without issue and has been voiding and passing gas. Persistent lochia today with gradual improvement. She has tolerated regular diet without issue. She states baby boy is doing well. She is bottle feeding and he has done well with feeding so far. No questions or concerns for us at this time. She delivered around 7pm last night and at this time has no preference on leaving tonight vs tomorrow am. Constitutional: no fever, no chills or no sweats Respiratory: no dyspnea Cardiovascular: no chest pain or no palpitations Breast: no breast pain Genitourinary (female): no dysuria Neurologic: no headache(s) no changes in vision, no headaches Physical Exam <Tanya Gordillo DO - Last Filed: 07/20/23 06:15> General: Alert, oriented. No acute distress. Cardiac: Regular rate and rhythm, no murmurs, rubs, or gallops. Respiratory: Clear to auscultation bilaterally, no wheezes/rales/rhonchi. No increased work of breathing. Symmetrical chest rise. No respiratory distress. Abdomen: Soft, nontender, nondistended. Bowel sounds present. Uterus: Uterine fundus firm, nontender, palpable below the umbilicus. Lower extremities: No lower extremity edema or swelling. No deep calf pain. Results & Data <Tanya Gordillo DO - Last Filed: 07/20/23 06:15> Vital Signs (Past 12 Hours) Vital Signs Temp Pulse Pulse Resp BP BP Pulse Ox 07/20/23 04:15 36.5 C 86 16 109/65 98 07/20/23 00:45 36.4 C L 85 16 119/77 96 07/19/23 22:00 07/19/23 22:00 36.4 C L 85 16 124/75 97 07/19/23 21:55 18 07/19/23 21:25 18 07/19/23 21:24 85 110/58 L 07/19/23 21:09 95 H 121/59 L 07/19/23 20:54 82 135/63 07/19/23 20:39 90 138/68 07/19/23 20:25 18 07/19/23 20:24 82 133/70 07/19/23 20:10 18 07/19/23 20:09 91 H 135/63 07/19/23 19:55 18 07/19/23 19:54 96 H 145/65 H 07/19/23 19:42 91 H 128/57 L 07/19/23 19:40 18 07/19/23 19:25 36.7 C 18 07/19/23 19:24 101 H 123/63 07/19/23 19:22 106 H 98 07/19/23 19:17 110 H 98 07/19/23 19:12 103 H 98 07/19/23 19:09 103 H 127/63 07/19/23 19:07 116 H 98 07/19/23 19:06 86 92 07/19/23 19:02 120 H 95 07/19/23 19:01 97 H 89 L 07/19/23 19:00 18 07/19/23 19:00 18 07/19/23 18:57 110 H 98 07/19/23 18:55 89 91 07/19/23 18:54 89 130/73 07/19/23 18:52 107 H 99 07/19/23 18:49 90 88 L 07/19/23 18:47 82 97 07/19/23 18:42 87 97 01/23/24 18:40 78 105/59 L 07/19/23 18:37 87 97 07/19/23 18:32 79 98 07/19/23 18:30 18 07/19/23 18:30 18 07/19/23 18:27 74 98 07/19/23 18:26 82 107/55 L 07/19/23 18:22 86 98 07/19/23 18:17 91 H 98 07/19/23 18:12 92 H 98 O2 Del Method 07/20/23 04:15 Room Air 07/20/23 00:45 Room Air 07/19/23 22:00 Room Air 07/19/23 22:00 Room Air 07/19/23 21:55 07/19/23 21:25 07/19/23 21:24 07/19/23 21:09 07/19/23 20:54 07/19/23 20:39 07/19/23 20:25 07/19/23 20:24 07/19/23 20:10 07/19/23 20:09 07/19/23 19:55 07/19/23 19:54 07/19/23 19:42 07/19/23 19:40 07/19/23 19:25 07/19/23 19:24 07/19/23 19:22 07/19/23 19:17 07/19/23 19:12 07/19/23 19:09 07/19/23 19:07 07/19/23 19:06 07/19/23 19:02 07/19/23 19:01 07/19/23 19:00 07/19/23 19:00 07/19/23 18:57 07/19/23 18:55 07/19/23 18:54 07/19/23 18:52 07/19/23 18:49 07/19/23 18:47 07/19/23 18:42 07/19/23 18:40 07/19/23 18:37 07/19/23 18:32 07/19/23 18:30 07/19/23 18:30 07/19/23 18:27 07/19/23 18:26 07/19/23 18:22 07/19/23 18:17 07/19/23 18:12 Supervising Physician <Meagan Ansari MD - Last Filed: 07/20/23 07:15> Co-Signing Physician Notes Resident Physician Supervision Note: I interviewed and examined the patient. Discussed with Dr. Gordillo and medical students, and agree with findings and plan as documented in the note. Any exceptions or clarifications are listed here: [ ] Documented By: Meagan Ansari MD, FACOG
[2023-07-20] MEDS: PRENATAL VITAMIN 1 TAB PO SCH (08:17)
[2023-07-20] MEDS: DOCUSATE SODIUM 100 MG CAP PO SCH ×2 (08:17→20:46)
[2023-07-21 06:27] LABS: Hematocrit (blood only) 23.1 % (37.0-47.0); Hemoglobin 7.7 g/dl (12.0-16.0)
--- NOTE | 2023-07-21 07:07 | Obstetrical Progress Note ---
Date of Service <Tanya Gordillo DO - Last Filed: 07/21/23 07:11> July 21, 2023 Assessment & Plan <Tanya Gordillo DO - Last Filed: 07/21/23 07:11> (1) care following vaginal delivery: Feels well today. Continuing to eat well, void well, ambulate well. Pain well controlled with tylenol/ibuprofen. Routine care; OOB, ambulation, continue regular diet. Anticipate discharge 24-48 hours after , likely today. After discharge will have 6 week follow-up with Dr. Ansari. <Judah Graves MD, FACOG - Last Filed: 07/21/23 07:59> (1) care following vaginal delivery: Subjective <Tanya Gordillo DO - Last Filed: 07/21/23 07:11> Pt is a 38 y/o female who is PPD#2 following at 39 2/7 weeks. Pt states she is continuing to feel better by the day and feels well this morning, hopeful to go home today. She states her cramps have improved and her bleeding has improved from yesterday. Continues to ambulate, tolerate diet, and void appropriately. No questions or complaints at this time. She is breast feeding and it is going well. Constitutional: no fever, no chills or no sweats Respiratory: no dyspnea Cardiovascular: no chest pain or no palpitations Breast: no breast pain Genitourinary (female): no dysuria Neurologic: no headache(s) no changes in vision, no headaches Physical Exam <Tanya Gordillo DO - Last Filed: 07/21/23 07:11> General: Alert, oriented. No acute distress. Cardiac: Regular rate and rhythm, no murmurs, rubs, or gallops. Respiratory: Clear to auscultation bilaterally, no wheezes/rales/rhonchi. No increased work of breathing. Symmetrical chest rise. No respiratory distress. Abdomen: Soft, nontender, nondistended. Bowel sounds present. Uterus: Uterine fundus firm, nontender, palpable below the umbilicus. Lower extremities: No lower extremity edema or swelling. No deep calf pain. Results & Data <Tanya Gordillo DO - Last Filed: 07/21/23 07:11> Vital Signs (Past 12 Hours) Vital Signs Temp Pulse Resp BP Pulse Ox O2 Del Method 07/20/23 23:45 36.4 C L 79 18 127/84 98 Room Air Supervising Physician <Judah Graves MD, FACOG - Last Filed: 07/21/23 07:59> Co-Signing Physician Notes Resident Physician Supervision Note: I interviewed and examined the patient. Discussed with Dr. Gordillo and agree with findings and plan as documented in the note. Any exceptions or clarifications are listed here: [None] Documented By: Judah Graves MD, FACOG Resident Activity Tracking <Tanya Gordillo DO - Last Filed: 07/21/23 07:11> Resident Involvement: Resident Care Provided Care Provided: Adult Hospital Medicine
[2023-07-21] MEDS: DOCUSATE SODIUM 100 MG CAP PO SCH (07:42)
[2023-07-21] MEDS: PRENATAL VITAMIN 1 TAB PO SCH (07:42)
== END 2023-07-21 11:58 | disposition home or self-care (01) | DRG 807 ==
LOC: OPB 14:19 → 4S1 14:20 → 4E2 21:52